=== PATIENT | male | born 1990 | race Caucasian/White ===

== ENCOUNTER 2018-05-12 11:19 | Emergency (ER) | payer OTHER ==
[~2018-05-12] VITALS: Ht 177.8 cm; Wt 75.0 kg
[2018-05-12 11:43] VITALS: BP 126/83
[2018-05-12] MEDS ORDERED: NICOTINE 21MG/24HR 1 EA TRANSDERMAL TD ONE (12:15)
== END 2018-05-12 13:44 | disposition home or self-care (01) ==
LOC: EDBD 11:19 → M ED 11:19
DX: F10.229 Alcohol dependence with intoxication, unspecified (principal); F17.210 Nicotine dependence, cigarettes, uncomplicated